=== PATIENT | female | born 1960 | race Caucasian/White ===

== ENCOUNTER 2019-03-15 18:11 | Inpatient (IN) ==
[2019-03-15] MEDS ORDERED: cefTRIAXone 1,000 MG in 0.9 % Sodium Chloride Mini Bag 100 ML IVPB ONE (18:42)
[2019-03-15] MEDS ORDERED: 0.9 % Sodium Chloride 1,000 ML IVC ONE (18:49)
--- NOTE | 2019-03-15 18:49 | Emergency Department Note ---
Disposition Clinical Impression: Multiple sclerosis Suicide attempt by multiple drug overdose Qualifiers: Encounter type: initial encounter Qualified Code(s): T50.902A - Poisoning by unspecified drugs, medicaments and biological substances, intentional self-harm, initial encounter UTI (urinary tract infection) Qualifiers: Urinary tract infection type: site unspecified Hematuria presence: with hematuria Qualified Code(s): N39.0 - Urinary tract infection, site not specified Disposition: Admitted As Inpatient Condition: Good Time of Disposition: 22:55 General Adult HPI - General Chief complaint: ED Psychiatric Symptoms Stated complaint: SI Time Seen by Provider: 03/15/19 18:17 Source: patient, EMS Limitations: no limitations - History of Present Illness Pain Scale: 0 - Related Data Home Medications Medication Instructions Recorded Confirmed Amantadine HCl [Amantadine] 100 mg PO DAILY 03/15/19 03/15/19 Baclofen 10 mg PO TID 03/15/19 03/15/19 Cholecalciferol (Vitamin D3) 2,000 unit PO DAILY 03/15/19 03/15/19 [Vitamin D] Citalopram Hydrobromide 40 mg PO DAILY 03/15/19 03/15/19 [Citalopram HBr] Gabapentin [Neurontin] 1,200 mg PO TID 03/15/19 03/15/19 Allergies Allergy/AdvReac Type Severity Reaction Status Date / Time acetaminophen [From Percocet] Allergy Hives Verified 03/15/19 15:57 oxycodone [From Percocet] Allergy Hives Verified 03/15/19 15:57 Past Medical History - Past Medical History Medical history: Reports: other Psychiatric history: Reports: no psych history - Social History Smoking Status: Current every day smoker Smokeless Tobacco Status: No Alcohol use: Reports: none Drug use: Reports: none Physical Exam - General Limitations: no limitations General appearance: alert, in no apparent distress Course Vital Signs Temperature 99.3 F 03/15/19 18:16 Pulse Rate 75 03/15/19 18:16 Respiratory Rate 18 03/15/19 18:16 Blood Pressure 135/80 03/15/19 18:16 O2 Sat by Pulse Oximetry 93 03/15/19 18:16 Temperature 98.9 F 03/15/19 20:30 Pulse Rate 78 03/15/19 20:30 Respiratory Rate 18 03/15/19 20:30 Blood Pressure 129/66 03/15/19 20:30 O2 Sat by Pulse Oximetry 89 03/15/19 20:30 Oxygen Delivery Oxygen Delivery Room Air Attestation Statement - Attestation Attestation: For this encounter, I have reviewed the RN CLINICAL DOCUMENTATION SPECIALIST or PA documentation, treatment plan, and medical decision making; and I have had face to face time with this patient. Patient arrives from an outside facility after intentionally overdosing on an SSRI. She is sleeping at the time of my exam.
[2019-03-15] MEDS ORDERED: Ipratropium/Albuterol Neb 3 ML IH ONE (18:53)
[2019-03-15] MEDS ORDERED: GuaiFENesin Liq 200 MG/10 ML UDC PO STA (18:53)
--- NOTE | 2019-03-15 18:56 | Emergency Department Note ---
Disposition Clinical Impression: Multiple sclerosis Suicide attempt by multiple drug overdose Qualifiers: Encounter type: initial encounter Qualified Code(s): T50.902A - Poisoning by unspecified drugs, medicaments and biological substances, intentional self-harm, initial encounter UTI (urinary tract infection) Qualifiers: Urinary tract infection type: site unspecified Hematuria presence: with hematuria Qualified Code(s): N39.0 - Urinary tract infection, site not specified Disposition: Admitted As Inpatient Condition: Good Time of Disposition: 19:37 General Adult HPI - General Chief complaint: ED Psychiatric Symptoms Stated complaint: SI Time Seen by Provider: 03/15/19 18:17 Source: patient, EMS Mode of arrival: EMS Limitations: no limitations Nursing Notes Reviewed: Yes Vital Signs Reviewed: Yes - History of Present Illness HPI Narrative: 58-year-old female presents to the emergency department via EMS from [facility] where she was seen for an intentional overdose with suicidal intent. Patient states that she just does not want to live any longer, she states she has MS which she is not treating and she would just rather not be alive. She states she took about 10 of "empty bottle" and maybe a few of her "relaxers". Patient states she took these medications around 1300. She states she feels tired but otherwise feels at her baseline. She denies alteration in mental status, confusion, recent illness, fever, chills, shortness of breath, chest pain, abdominal pain, nausea, vomiting, cough, diarrhea. She denies urinary complaints. Onset (ago): hour(s) Pain Scale: 0 Associated symptoms: Denies: confusion, chest pain, diaphoresis, fever/chills, headaches, loss of appetite, malaise, nausea/vomiting, rash, seizure, shortness of breath, syncope, weakness Treatments Prior to Arrival: other (Medical clearance labs obtained by previous facility) - Related Data Home Medications Medication Instructions Recorded Confirmed Amantadine HCl [Amantadine] 100 mg PO QAM 03/15/19 03/16/19 Cholecalciferol (Vitamin D3) 2,000 unit PO DAILY 03/15/19 03/16/19 [Vitamin D] Citalopram Hydrobromide 40 mg PO DAILY 03/15/19 03/16/19 [Citalopram HBr] Gabapentin [Neurontin] 1,200 mg PO TID 03/15/19 03/16/19 Baclofen [Lioresal] 10 mg PO TID PRN 03/16/19 03/16/19 Interferon Beta-1A [Avonex] 30 mcg IM QWEEK 03/16/19 03/16/19 Allergies Allergy/AdvReac Type Severity Reaction Status Date / Time acetaminophen [From Percocet] Allergy Hives Verified 03/16/19 17:33 oxycodone [From Percocet] Allergy Hives Verified 03/16/19 17:33 All systems ED: reviewed and negative except as stated. Review of Systems: As Per HPI Constitutional: Reports: as per HPI. Denies: fever, chills Cardiovascular: Reports: as per HPI. Denies: chest pain, palpitations Respiratory: Reports: as per HPI. Denies: cough, dyspnea, wheezes, sputum production Gastrointestinal: Reports: as per HPI. Denies: abdominal pain, nausea, vomiting, diarrhea, constipation Genitourinary: Reports: as per HPI Psychiatric: Reports: as per HPI, depression, suicidal thoughts Past Medical History - Past Medical History Attestation: Yes The following information was validated with the patient. Source: patient Medical history: Reports: other (MS) Psychiatric history: Reports: no psych history - Social History Smoking Status: Current every day smoker Smokeless Tobacco Status: No Alcohol use: Reports: none Drug use: Reports: none Physical Exam - General Limitations: no limitations General appearance: alert, in no apparent distress - Head Head exam: atraumatic, normocephalic, normal inspection - Eye Eye exam: Present: normal appearance, PERRL, EOMI, conjunctival injection (Slight) - ENT ENT exam: mucous membranes moist - Neck Neck exam: Present: normal inspection, full ROM, trachea midline - Chest Chest inspection: Present: normal inspection, symmetric chest wall rise - Respiratory Respiratory exam: Present: other (rhoncii throughout). Absent: respiratory distress, wheezes, accessory muscle use, prolonged expiratory phase - Cardiovascular Cardiovascular exam: Present: regular rate, normal rhythm, normal heart sounds - Abdominal Exam Abdominal exam: Present: soft, Non-Tender, normal bowel sounds - Neurological Exam Neurological exam: Present: alert, oriented X3 - Psychiatric Psychiatric exam: Present: normal affect, normal mood - Skin Skin exam: Present: warm, dry, intact, normal color Course Course Narrative: Well-developed female in no acute distress. Respirations are easy and even. Patient is alert and oriented, she is noted with slurred speech, she states this is her baseline related to the EMS, she does have some facial symmetry again she states this is baseline. GCS is 15. Moves all extremities at baseline, generalized weakness to entire body. Patient slightly elevated temperature of 99.3, oxygenation 93% on room air, normotensive, non-tachycardic. EKG completed upon arrival reveals a ventral rate 77 bpm, TX interval 134 ms, QTC 452 ms, there is no evidence of ischemia, prolonged QT, abnormal ectopy. Lungs reveal rhonchi throughout. Abdomen is soft and nontender. Patient is very disheveled, she does not appear well-kept. Patient came with her home medications, there is an empty bottle of citalopram 20 mg, she has 3 full bottles of amantadine 100 mg, she has positive tobacco pfe nnig gabapentin. She specifically states it was the empty bottle that she took about 10 medication of, the baclofen is incredibly full and she states she took maybe "a couple of relaxers" when asked if it was the muscle relaxer baclofen she said yes. Review of records from previous facility revealed labs with an elevated white blood cell count of 12.2, CBC otherwise unremarkable, metabolic panel unremarkable, hepatic panel specifically AST/ALTs were within normal limits. ABG only abnormality was a PCO2 of 81, lactic acid 1.4 UA does reveal UTI as nitrite positive, hematuria. Urine tox screen was negative. There is a chest x-ray completed a previous facility with no acute abnormality. Upon arrival EKG was completed. [id number]-spoke with poison control center, they recommended monitoring for 24 hours and then having psychological evaluation. Given the patient is unknown to us despite her stating she is at her baseline she does have slurred speech and generalized weakness, we will obtain a head CT. We will initiate treatment for the UTI with ceftriaxone, flagyl as pt is also Trichomonas positive. We will initiate fluids. We will obtain urine culture as well as blood cultures. Patient will require admission to the medical floor, she is currently under pink slip. She is agreeable to this plan of care. Attending Dr. Ku has had one-on-one face time with patient is agreeable to plan of care. 193- head CT returns with motion artifact but similar in appearance without evidence of acute abnormality. Spoke with hospitalist Dr. Rico, agreeable for admission to hospital. Will transition care to inpatient team at this time. Will monitor until complete. Vital Signs Temperature 99.3 F 03/15/19 18:16 Pulse Rate 75 03/15/19 18:16 Respiratory Rate 18 03/15/19 18:16 Blood Pressure 135/80 03/15/19 18:16 O2 Sat by Pulse Oximetry 93 03/15/19 18:16 Temperature 98.6 F 03/16/19 15:56 Pulse Rate 78 03/16/19 15:56 Respiratory Rate 20 03/16/19 15:56 Blood Pressure 160/75 03/16/19 15:56 O2 Sat by Pulse Oximetry 92 03/16/19 15:56 Oxygen Delivery Oxygen Delivery Room Air Medical Decision Making - Lab Data Lab results reviewed: Yes I reviewed the patient's lab results. Result diagrams: 03/16/19 06:53 03/16/19 06:53 Lab Results 03/16/19 03/16/19 03/16/19 Range/Units 06:53 06:53 12:58 WBC 10.7 (4.3-11.1) K/mcL RBC 4.78 (3.82-4.97) M/mcL Hgb 14.4 (11.5-15.4) g/dL Hct 42.7 (35.3-44.9) % MCV 89.3 (83.0-100.0) fL MCH 30.1 (28.0-33.3) pg MCHC 33.7 (31.6-35.5) g/dL RDW 12.5 (11.5-14.5) % Plt Count 308 (140-400) K/mcL MPV 9.7 (9.4-12.4) fL Immature Gran % 0.3 (0-4) % Seg Neutrophils % 79.0 % Lymphocytes % 12.4 % Monocytes % 6.2 % Eosinophils % 1.6 % Basophils % 0.5 % Neutrophils # 8.5 (1.6-8.9) K/mcL Lymphocytes # 1.3 (0.6-4.6) K/mcL Monocytes # 0.7 (0.0-1.3) K/mcL Eosinophils # 0.2 (0.0-0.6) K/mcL Basophils # 0.1 (0.0-0.2) K/mcL ABG pH 7.42 (7.32-7.45) pH Units ABG pCO2 36 (35-45) mmHg ABG pO2 55 L (85-104) mmHg ABG HCO3 24 (21-27) mEq/L ABG Total CO2 25 (20-26) mEq/L ABG O2 Saturation 89 L (95-98) % ABG Base Excess -1 (-2 to 3) mEq/L O2 Delivery Device Cannula Inspired O2 8.0 (1-15=lpm [id number]%) Sodium 138 (136-145) mEq/L Potassium 3.9 (3.5-5.1) mEq/L Chloride 104 (98-107) mEq/L Carbon Dioxide 24 (23-29) mEq/L BUN 7 (6-20) mg/dL Creatinine 0.59 L (0.60-1.20) mg/dL Est GFR ( Amer) > 60 (> 60) Est GFR (Non-Af Amer) > 60 (> 60) BUN/Creatinine Ratio 12 (6-26) Glucose 131 H (70-105) mg/dL Calculated Osmolality 286 (280-300) Calcium 8.8 (8.6-10.3) mg/dL Total Bilirubin 0.7 (0.3-1.0) mg/dL AST 12 L (13-39) Units/L ALT 13 (7-52) Units/L Alkaline Phosphatase 110 H (34-104) Units/L Creatine Kinase 169 (30-223) Units/L Serum Total Protein 5.9 L (6.4-8.9) g/dL Albumin 3.6 (3.5-5.7) g/dL Globulin 2.3 L (2.4-3.5) g/dL Albumin/Globulin Ratio 1.6 (1.1-2.2) - Radiology Data Radiology results reviewed: Yes I reviewed the patient's radiology results. - EKG Data EKG #1 EKG attestation: Yes I reviewed and interpreted this EKG.
[2019-03-15] MEDS ORDERED: MetroNIDAZOLE 500 MG/100 ML 500 MG/100 ML BAG IVPB ONE (19:17)
[2019-03-15] MEDS ORDERED: Ipratropium/Albuterol Neb 3 ML IH PRN (20:08)
[2019-03-15] MEDS: Ringers Solution, Lactated 1,000 ML IVC SCH (21:35)
[2019-03-15] MEDS: Ondansetron 4 MG/2 ML VIAL IVP PRN (23:29)
--- NOTE | 2019-03-15 23:40 | Internal Med History&Physical ---
Date of Encounter: 03/15/19 Time of Encounter: 23:38 Internal Medicine - H&P: HPI Chief complaint: ams Admitted From: Hospital to Hospital Transfer Plans for Post Hospital Care: Home History of present illness: Information obtained from chart review as the patient is not responsive at the moment. Lluvia Moreno is a 58-year-old woman with multiple sclerosis and mood disorder who went to [facility] at 4 PM today after taking a handful of pills at 1 PM this afternoon. It appears she took about 10 tablets of citalopram 40 mg and a number of baclofen 10 mg tablets with intent to harm herself or in her life. Upon arrival to [facility] she was still alert and oriented but her speech was gradually starting to become slow and slurry. She was transferred to our ER here for further evaluation. She denied reports of hallucinations, recent illness, fever, chills, and shortness of breath or chest pain. She also denied associated abdominal pain, dysuria, nausea, vomiting or diarrhea. She remained hemodynamically stable, EKG revealed a normal sinus rhythm with intact [place] and QTc intervals. Lab work done at [facility] appeared unchanged from study she had done in 2015. A urine study was done but not collected in sterile fashion revealing nitrites and leukocyte esterase with pyuria so she was given a dose of ceftriaxone. Due to the presence of Trichomonas in the urine specimen she was also given metronidazole. Given the acute intoxication shows unable to be cleared medically pending 24-hour observation after which she can be seen by psychiatry. Vitals: Reviewed General: Unkempt-appearing female sleeping comfortably in bed in no acute distress. Skin: Warm and dry. HEENT: Moist mucous membranes. No conjunctivae pallor. Neck: No lymphadenopathy. No JVD. No carotid bruits. No palpable thyroid. Chest: Normal thoracic expansion. Normal breath sounds. Clear to auscultation. Heart: Normal S1 & S2; rhythmic. No rubs or murmurs. Abdomen: Non-distended, soft and non-tender to palpation. No peritoneal reaction. Extremities: No clubbing, cyanosis or edema. No calf tenderness. Normal distal pulses. Neurological: Sleeping and unresponsive. Psych: Unable to assess. Assessment/Plan 1. Intentional overdose: Will monitor the patient on telemetry overnight, monitor her airways and ensure she does not go into respiratory depression. Her blood gas was within normal limits. She will continue to have a sitter until evaluated by psychiatry. In the interim, fluid resuscitation is in order and will recheck her electrolytes. 2. Abnormal UA: Not collected in sterile fashion and there was no reports of fever, lower abdominal pain and dysuria. Likely asymptomatic bacteriuria and not necessitating treatment. Can be re-evaluated when she wakes up. Unclear if she has clinical signs of vaginitis that would warrant metronidazole treatment for the Trichomonas seen on urine. This can be addressed as an outpatient and does not necessitate inpatient care. 3. Multiple sclerosis: The patient reportedly is not on therapy for this however on my review of her medication list, she has amantadine which can be used to treat fatigue in patients with MS. 4. DVT prophylaxis: Antiembolic stockings ordered. Past Med Surg Social Fam HX - Past Medical History Medical history: other Additional medical history: MS Psychiatric history: no psych history - Social History Smoking Status: Current every day smoker Smokeless Tobacco Status: No Alcohol use: none Drug use: none Internal Medicine - H&P: Meds Amantadine HCl [Amantadine] 100 mg PO DAILY 03/15/19 [History] Baclofen 10 mg PO TID 03/15/19 [History] Cholecalciferol (Vitamin D3) [Vitamin D] 2,000 unit PO DAILY 03/15/19 [History] Citalopram Hydrobromide [Citalopram HBr] 40 mg PO DAILY 03/15/19 [History] Gabapentin [Neurontin] 1,200 mg PO TID 03/15/19 [History] Allergy/AdvReac Type Severity Reaction Status Date / Time acetaminophen [From Percocet] Allergy Hives Verified 03/15/19 15:57 oxycodone [From Percocet] Allergy Hives Verified 03/15/19 15:57 All Systems PM: A 10-system review of systems was performed and is negative for pertinent findings except as documented above in the HPI. Family history reviewed and found non-contributory. - Constitutional Vitals: Temp Pulse Resp BP Pulse Ox 97.8 F 67 16 133/78 93 03/15/19 23:00 03/15/19 23:00 03/15/19 23:00 03/15/19 23:00 03/15/19 23:00 Exam: . Internal Med - H&P Results - Impressions ITS Impressions Head CT 03/15/19 18:40 IMPRESSION: Motion limited. No acute intracranial abnormality. Atrophy with periventricular and scattered frontal parietal white matter disease,, similar to prior. These findings could be due to small-vessel ischemic change or the reported history of multiple sclerosis. Paranasal sinus disease D/ / Cristian Hart MD / Cristian Hart MD Interpreting Provider: Cristian Hart MD - Time Spent With Patient Total time spent is greater than 50% in coordination of care (as documented) at patient's floor/unit and/or counseling patient:
[2019-03-16] MEDS: Ringers Solution, Lactated 1,000 ML IVC SCH ×2 (03:22→09:57)
[2019-03-16 07:44] LABS: Basophils # 0.1 K/mcL (0.0-0.2); Basophils % 0.5 %; Eosinophils # 0.2 K/mcL (0.0-0.6); Eosinophils % 1.6 %; Hematocrit 42.7 % (35.3-44.9); Hemoglobin 14.4 g/dL (11.5-15.4); Immature Granulocytes % 0.3 % (0-4); Lymphocytes # 1.3 K/mcL (0.6-4.6); Lymphocytes % 12.4 %; Mean Corpuscular HGB Conc 33.7 g/dL (31.6-35.5); Mean Corpuscular Hemoglobin 30.1 pg (28.0-33.3); Mean Corpuscular Volume 89.3 fL (83.0-100.0); Mean Platelet Volume 9.7 fL (9.4-12.4); Monocytes # 0.7 K/mcL (0.0-1.3); Monocytes % 6.2 %; Neutrophils # 8.5 K/mcL (1.6-8.9); Platelet Count 308 K/mcL (140-400); Red Blood Count 4.78 M/mcL (3.82-4.97); Red Cell Distribution Width 12.5 % (11.5-14.5); White Blood Count 10.7 K/mcL (4.3-11.1)
[2019-03-16 08:06] LABS: Alanine Aminotransferase 13 Units/L (7-52); Albumin 3.6 g/dL (3.5-5.7); Albumin/Globulin Ratio 1.6 (1.1-2.2); Alkaline Phosphatase 110 Units/L (34-104); Aspartate Amino Transferase 12 Units/L (13-39); BUN/Creatinine Ratio 12 (6-26); Bilirubin,Total 0.7 mg/dL (0.3-1.0); Blood Urea Nitrogen 7 mg/dL (6-20); Calcium 8.8 mg/dL (8.6-10.3); Carbon Dioxide 24 mEq/L (23-29); Chloride 104 mEq/L (98-107); Creatine Kinase 169 Units/L (30-223); Globulin 2.3 g/dL (2.4-3.5); Glucose 131 mg/dL (70-105); Osmolality,Calculated 286 (280-300); Potassium 3.9 mEq/L (3.5-5.1); Sodium 138 mEq/L (136-145); Total Protein 5.9 g/dL (6.4-8.9); eGFR For African Americans > 60 (> 60); eGFR For Non-African Americans > 60 (> 60)
[2019-03-16] MEDS: Ondansetron 4 MG/2 ML VIAL IVP PRN ×2 (09:58→16:06)
[2019-03-16] MEDS: Acetaminophen 325 MG TABLET PO PRN (10:14)
[2019-03-16 13:03] LABS: ABG Base Excess -1 mEq/L (-2 to 3); ABG HCO3 24 mEq/L (21-27); ABG Oxygen Saturation 89 % (95-98); ABG PCO2 36 mmHg (35-45); ABG PH 7.42 pH Units (7.32-7.45); ABG PO2 55 mmHg (85-104); ABG TCO2 25 mEq/L (20-26)
--- NOTE | 2019-03-16 15:10 | Consult Note ---
Date of Encounter: 03/16/19 Time of Encounter: 15:03 Assessment & Recommendation (1) Major depress dis, severe Current visit: Yes Status: Acute Assessment & Recommendation: Client reports being glad her suicide attempt was unsuccessful but she also reports struggles with depression and SI that comes and goes. Warrants inpatient mental health treatment. Would continue sitter for the time being. Takes Celexa but client denies currently being treated for depression. Celexa is used for depression and anxiety. Unclear how long she has been on this medication or if it was helping her at any point. Would recommend increasing dose to 60mg at this time. This will maximize the dose and if she does not get any benefit from the dose change can look at switching to another agent or adding a second antidepressant. Given how client presents clinically/medically would [facility]. She is younger than the average [facility] patient but I would have concerns having her on a unit with younger more aggressive, psychotic patients. Given her mobility issues and currently being on oxygen, think she is better suited for a [facility]. Recommend a [employer] consult to look at placement options. History of Present Illness Requesting Physician: Nat Rico MD Reason for consult: SI History of present illness: Ms. Moreno is a 58 year old female who was admitted following a polypharmacy overdose with intent to end her life. Client has no previous history of suicide attempts. On eval today client reports being glad her suicide attempt was not successful. However, she reports significant depression and SI that comes and goes. Client reports she has been diagnosed with Bipolar Disorder in the past but denies she is currently seeing a psychiatrist and denies she is being treated for mental illness. Records show she takes Celexa which client may not realize she is taking. Lives with ex- who helps her with meds. Client has MS. On eval she looks medically fragile. Repeatedly cramped while this underwriter solicitation director was talking to her and needed help moving her limbs to help with muscle contractures. Seemed very short of breath as her speech was fragmented. On oxygen here but client states she does not normally use oxygen at home. Suspect she is not adequately managing her medical issues at home. Client states she struggles with transportation and may not be following with doctors as recommended. CC: Nat Rico MD Past Med Surg Social Fam HX - Past Medical History Medical history: other - Past Psychiatric History Psychiatric history: Reports: bipolar, depression Family psychiatric history: Yes Family History of Suicide: Unknown - Social History Smoking Status: Current every day smoker Smokeless Tobacco Status: No Alcohol use: none Drug use: none Medications & Allergies Amantadine HCl [Amantadine] 100 mg PO DAILY 03/15/19 [History] Baclofen 10 mg PO TID 03/15/19 [History] Cholecalciferol (Vitamin D3) [Vitamin D] 2,000 unit PO DAILY 03/15/19 [History] Citalopram Hydrobromide [Citalopram HBr] 40 mg PO DAILY 03/15/19 [History] Gabapentin [Neurontin] 1,200 mg PO TID 03/15/19 [History] Allergy/AdvReac Type Severity Reaction Status Date / Time acetaminophen [From Percocet] Allergy Hives Verified 03/15/19 15:57 oxycodone [From Percocet] Allergy Hives Verified 03/15/19 15:57 Review of Systems Constitutional: Reports: weakness Eyes: Denies: eye pain, vision change Ears, Nose, Throat: Denies: ear pain, throat pain, dental pain, hearing loss, congestion Cardiovascular: Denies: chest pain, palpitations, dyspnea on exertion Respiratory: Reports: other Gastrointestinal: Denies: abdominal pain, nausea, vomiting, diarrhea, constipation Genitourinary female: Denies: urgency, dysuria, frequency, abnormal menses, dyspareunia Musculoskeletal: Reports: other Integumentary: Denies: rash, lesions, pruritus Neurological: Reports: weakness Endocrine: Denies: fatigue, heat or cold intolerance Hematologic/Lymphatic: Denies: easy bruising, lymphadenopathy Allergic/Immunologic: Denies: urticaria, itchy eyes Psychiatry Exam - Constitutional Vitals: Temp Pulse Resp BP Pulse Ox 99.3 F 88 16 150/75 86 03/16/19 07:32 03/16/19 12:36 03/16/19 07:32 03/16/19 07:32 03/16/19 12:36 General appearance: unkempt, disheveled - Musculoskeletal Station: stiff Strength & Tone: spastic - Psychiatric Patient Orientation: Yes Person, Yes Time, Yes Place Level of alertness: Alert Behavior: calm, cooperative Psychomotor activity: Abnormal movements Eye Contact: Maintains Eye Contact Mood Description: Depressed Affect description: congruent with mood Speech Volume: Soft/Quiet Speech pattern: slowed Language & Vocabulary: consistent with education Thought Process: Linear Thought Content: Yes Suicidal ideation, No Homicidal ideation, No Overt delusions Perceptual Disturbances: No Auditory hallucinations, No Visual hallucinations Attention Span Ability: Capable of Focused Attention Memory Description: Grossly Intact Patient Reliability: Reliable Historian Fund of knowledge: Yes abstraction ability, Yes aware of current events Intelligence Estimate: Average Judgment: Poor Insight: Partial Results - Labs Labs: Laboratory Last Values WBC 10.7 K/mcL (4.3-11.1) 03/16/19 06:53 RBC 4.78 M/mcL (3.82-4.97) 03/16/19 06:53 Hgb 14.4 g/dL (11.5-15.4) 03/16/19 06:53 Hct 42.7 % (35.3-44.9) 03/16/19 06:53 MCV 89.3 fL (83.0-100.0) 03/16/19 06:53 MCH 30.1 pg (28.0-33.3) 03/16/19 06:53 MCHC 33.7 g/dL (31.6-35.5) 03/16/19 06:53 RDW 12.5 % (11.5-14.5) 03/16/19 06:53 Plt Count 308 K/mcL (140-400) 03/16/19 06:53 MPV 9.7 fL (9.4-12.4) 03/16/19 06:53 Immature Gran % 0.3 % (0-4) 03/16/19 06:53 Seg Neutrophils % 79.0 % 03/16/19 06:53 Lymphocytes % 12.4 % 03/16/19 06:53 Monocytes % 6.2 % 03/16/19 06:53 Eosinophils % 1.6 % 03/16/19 06:53 Basophils % 0.5 % 03/16/19 06:53 Neutrophils # 8.5 K/mcL (1.6-8.9) 03/16/19 06:53 Lymphocytes # 1.3 K/mcL (0.6-4.6) 03/16/19 06:53 Monocytes # 0.7 K/mcL (0.0-1.3) 03/16/19 06:53 Eosinophils # 0.2 K/mcL (0.0-0.6) 03/16/19 06:53 Basophils # 0.1 K/mcL (0.0-0.2) 03/16/19 06:53 ABG pH 7.42 pH Units (7.32-7.45) 03/16/19 12:58 ABG pCO2 36 mmHg (35-45) 03/16/19 12:58 ABG pO2 55 mmHg (85-104) L 03/16/19 12:58 ABG HCO3 24 mEq/L (21-27) 03/16/19 12:58 ABG Total CO2 25 mEq/L (20-26) 03/16/19 12:58 ABG O2 Saturation 89 % (95-98) L 03/16/19 12:58 ABG Base Excess -1 mEq/L (-2 to 3) 03/16/19 12:58 O2 Delivery Device Cannula 03/16/19 12:58 Inspired O2 8.0 (1-15=lpm [id number]=%) 03/16/19 12:58 Sodium 138 mEq/L (136-145) 03/16/19 06:53 Potassium 3.9 mEq/L (3.5-5.1) 03/16/19 06:53 Chloride 104 mEq/L (98-107) 03/16/19 06:53 Carbon Dioxide 24 mEq/L (23-29) 03/16/19 06:53 BUN 7 mg/dL (6-20) 03/16/19 06:53 Creatinine 0.59 mg/dL (0.60-1.20) L 03/16/19 06:53 Est GFR ( Amer) > 60 (> 60) 03/16/19 06:53 Est GFR (Non-Af Amer) > 60 (> 60) 03/16/19 06:53 BUN/Creatinine Ratio 12 (6-26) 03/16/19 06:53 Glucose 131 mg/dL (70-105) H 03/16/19 06:53 Calculated Osmolality 286 (280-300) 03/16/19 06:53 Calcium 8.8 mg/dL (8.6-10.3) 03/16/19 06:53 Total Bilirubin 0.7 mg/dL (0.3-1.0) 03/16/19 06:53 AST 12 Units/L (13-39) L 03/16/19 06:53 ALT 13 Units/L (7-52) 03/16/19 06:53 Alkaline Phosphatase 110 Units/L (34-104) H 03/16/19 06:53 Creatine Kinase 169 Units/L (30-223) 03/16/19 06:53 Serum Total Protein 5.9 g/dL (6.4-8.9) L 03/16/19 06:53 Albumin 3.6 g/dL (3.5-5.7) 03/16/19 06:53 Globulin 2.3 g/dL (2.4-3.5) L 03/16/19 06:53 Albumin/Globulin Ratio 1.6 (1.1-2.2) 03/16/19 06:53 - Impressions Impressions Head CT 03/15/19 18:40 IMPRESSION: Motion limited. No acute intracranial abnormality. Atrophy with periventricular and scattered frontal parietal white matter disease,, similar to prior. These findings could be due to small-vessel ischemic change or the reported history of multiple sclerosis. Paranasal sinus disease D/ / Cristian Hart MD / Cristian Hart MD Interpreting Provider: Cristian Hart MD Chest X-Ray 03/16/19 12:47 IMPRESSION: New consolidation within the right lower lobe with associated volume loss and mild mediastinal shift towards the right. Right-sided pleural effusion is not excluded. Lobar atelectasis of the right middle and lower lobes cannot be excluded. Consider follow-up CT for further evaluation. D/ / Erum Yu MD / Erum Yu MD Interpreting Provider: Erum Yu MD Consult Discharge Plan - Plan Referrals: NONE,PCP [Primary Care Provider] -
[2019-03-16] MEDS: 0.9 % Sodium Chloride 1,000 ML IVC SCH (16:07)
--- NOTE | 2019-03-16 17:01 | Internal Med Progress Note ---
Hospitalist Progress Note - Encounter Date of Encounter: 03/16/19 Time of Encounter: 10:00 - Subjective Interval History: She was seen and examined at bedside patient has been experiencing some respiratory distress with oxygen saturations in the mid low 80s ABG was obtained which did show some hypoxia patient was placed in the high flow oxygen stat chest x-rays ordered -concern for possible aspiration Due to the patient's decline respiratory states she will require greater than 2 midnights for treatment and will be switched to inpatient status - Exam Vitals: Temp Pulse Resp BP Pulse Ox 98.6 F 78 20 160/75 92 03/16/19 15:56 03/16/19 15:56 03/16/19 15:56 03/16/19 15:56 03/16/19 15:56 Exam: Patient appears to be in moderate respiratory distress Skin: Free of rash and discoloration. Eyes: Sclera is white. There is no discharge from eyes. ENMT: Oral/pharyngeal mucosa is normal in appearance. There is no discharge from nose or ears. Respiratory: Diminished breath sounds with accessory muscles used CV: Heart is regular with no gallop or murmur. GI: Abdomen is flat and soft with no palpable mass or visceromegaly. : There is no tenderness in patient's flanks bilaterally. Neuro exam: He has good strength in upper and lower extremities. He has normal eye movements. Psychiatric: He has normal affect. His thought process is appropriate to the situation. - Assessment and Plan (1) Acute respiratory failure with hypoxemia Current Visit: Yes Status: Acute Assessment and Plan: 1 patient appears to be in respiratory distress at one assessment she does have conversational dyspnea and is using sensory muscles. Decreased breath sounds- suspect possible aspiration pneumonia secondary to drug overdose ABG obtained which does show some hypoxia placed on high flow oxygen Will obtain chest x-ray Blood cultures Initiate on Zosyn (2) Major depress dis, severe Current Visit: Yes Status: Acute Assessment and Plan: Psychiatry has been consulted and appreciate recommendations-currently holding medications due to recent overdose (3) Multiple sclerosis Current Visit: Yes Status: Acute Assessment and Plan: Patient states she follows with Dr. Ace states "I have not been taking her medications, I am going to anyway, Why bother." home list of meds - amantadine (4) Suicide attempt by multiple drug overdose Current Visit: Yes Status: Acute Assessment and Plan: Overdose on baclofen and citalopram-EKG obtained with no prolonged QT interval continuous cardiac monitoring-poison control notified per ED Aspiration precautions Continuous SPO2 monitoring Continuous oxygen-acquiring high flow Patient is very tearful stating that she wants to -is evaluated by psychiatry and due to her debilitated state recommending [facility]. Once patient is medically stable we will have her evaluated by PT OT and possible transfer to geriatric psychiatric unit Consult social sciences lecturer (5) UTI (urinary tract infection) Current Visit: Yes Status: Acute Assessment and Plan: Patient is on Zosyn at this time urine culture is pending-she did have Trichomonas in her urine was given-metronidazole. - Time Spent with Patient Total time spent is greater than 50% in coordination of care (as documented) at patient's floor/unit and/or counseling patient: Internal Medicine: Result - Labs CBC & Chem 7: 03/16/19 06:53 03/16/19 06:53 Labs: Short CBC 03/16/19 Range/Units 06:53 WBC 10.7 (4.3-11.1) K/mcL Hgb 14.4 (11.5-15.4) g/dL Hct 42.7 (35.3-44.9) % Plt Count 308 (140-400) K/mcL Neutrophils # 8.5 (1.6-8.9) K/mcL BMP 03/16/19 06:53 Sodium 138 Potassium 3.9 Chloride 104 Carbon Dioxide 24 BUN 7 Creatinine 0.59 L Glucose 131 H Calcium 8.8 Liver Function 03/16/19 Range/Units 06:53 Total Bilirubin 0.7 (0.3-1.0) mg/dL AST 12 L (13-39) Units/L ALT 13 (7-52) Units/L Alkaline Phosphatase 110 H (34-104) Units/L Albumin 3.6 (3.5-5.7) g/dL - ABG Interpretation ABG results: ABG ABG pH 7.42 pH Units (7.32-7.45) 03/16/19 12:58 ABG pCO2 36 mmHg (35-45) 03/16/19 12:58 ABG pO2 55 mmHg (85-104) L 03/16/19 12:58 ABG O2 Saturation 89 % (95-98) L 03/16/19 12:58 - Impressions Impressions Head CT 03/15/19 18:40 IMPRESSION: Motion limited. No acute intracranial abnormality. Atrophy with periventricular and scattered frontal parietal white matter disease,, similar to prior. These findings could be due to small-vessel ischemic change or the reported history of multiple sclerosis. Paranasal sinus disease D/ / Cristian Hart MD / Cristian Hart MD Interpreting Provider: Cristian Hart MD Chest X-Ray 03/16/19 12:47 IMPRESSION: New consolidation within the right lower lobe with associated volume loss and mild mediastinal shift towards the right. Right-sided pleural effusion is not excluded. Lobar atelectasis of the right middle and lower lobes cannot be excluded. Consider follow-up CT for further evaluation. D/ / Erum Yu MD / Erum Yu MD Interpreting Provider: Erum Yu MD Consult Discharge Plan - Plan Referrals: NONE,PCP [Primary Care Provider] - (4) Suicide attempt by multiple drug overdose Qualifiers: Encounter type: initial encounter Qualified Code(s): T50.902A - Poisoning by unspecified drugs, medicaments and biological substances, intentional self-harm, initial encounter (5) UTI (urinary tract infection) Qualifiers: Urinary tract infection type: site unspecified Hematuria presence: with hematuria Qualified Code(s): N39.0 - Urinary tract infection, site not specified; R31.9 - Hematuria, unspecified
--- NOTE | 2019-03-16 17:34 | Event Note ---
Date of Encounter: 03/16/19 Time of Encounter: 17:00 5 per nursing staff the patient's oxygen saturations down to 82% on high flow oxygen on 12 L nasal cannula patient was placed on BiPAP oxygen saturations up to 96% patient will be transferred to [facility] for further treatment and critical observation. Chest x-ray was obtained stat which did reveal new consolidation within right lower lobe with associated volume loss and mild Negus diagnosis with the right right-sided pleural effusion is not excluded lobar atelectasis of the right middle and lower lobes cannot be excluded consider follow-up CT for further evaluation. CT ordered however patient is not stable to complete
[2019-03-16] MEDS: Piperacillin/Tazobactam 3.375 GM in 0.9 % Sodium Chloride Mini Bag 100 ML IVPB SCH (18:20)
[2019-03-17] MEDS: Piperacillin/Tazobactam 3.375 GM in 0.9 % Sodium Chloride Mini Bag 100 ML IVPB SCH ×3 (01:03→17:49)
[2019-03-17] MEDS: 0.9 % Sodium Chloride 1,000 ML IVC SCH ×3 (01:06→22:56)
[2019-03-17 06:08] LABS: Basophils % 0.4 %; Eosinophils # 0.3 K/mcL (0.0-0.6); Eosinophils % 3.1 %; Hematocrit 41.9 % (35.3-44.9); Hemoglobin 13.6 g/dL (11.5-15.4); Immature Granulocytes % 0.2 % (0-4); Lymphocytes # 1.4 K/mcL (0.6-4.6); Lymphocytes % 15.6 %; Mean Corpuscular HGB Conc 32.5 g/dL (31.6-35.5); Mean Corpuscular Hemoglobin 29.6 pg (28.0-33.3); Mean Corpuscular Volume 91.1 fL (83.0-100.0); Mean Platelet Volume 9.6 fL (9.4-12.4); Monocytes # 0.6 K/mcL (0.0-1.3); Monocytes % 6.6 %; Neutrophils # 6.7 K/mcL (1.6-8.9); Platelet Count 269 K/mcL (140-400); Red Cell Distribution Width 12.7 % (11.5-14.5); Segmented Neutrophils % 74.1 %; White Blood Count 9.1 K/mcL (4.3-11.1)
[2019-03-17 06:26] LABS: BUN/Creatinine Ratio 13 (6-26); Blood Urea Nitrogen 9 mg/dL (6-20); Calcium 8.5 mg/dL (8.6-10.3); Carbon Dioxide 25 mEq/L (23-29); Chloride 106 mEq/L (98-107); Glucose 128 mg/dL (70-105); Osmolality,Calculated 290 (280-300); Potassium 3.6 mEq/L (3.5-5.1); Sodium 140 mEq/L (136-145); eGFR For African Americans > 60 (> 60); eGFR For Non-African Americans > 60 (> 60)
[2019-03-17] MEDS: Acetaminophen 325 MG TABLET PO PRN (08:47)
--- NOTE | 2019-03-17 11:24 | Internal Med Progress Note ---
Hospitalist Progress Note - Encounter Date of Encounter: 03/17/19 Time of Encounter: 11:21 - Subjective Interval History: Patient was seen and examined at bedside today. Patient is currently having no issues and complaint. Patient was transferred yesterday from [address] [place] [address] due to development of acute hypoxic respiratory failure and was placed on BiPAP. Patient is currently on high flow oxygen via nasal cannula. Continue Zosyn for aspiration pneumonia. We will get a CT scan today. We will start Celexa today for depression but psychiatry recommendation. - Exam Vitals: Temp Pulse Resp BP Pulse Ox 98.3 F 63 18 141/75 96 03/17/19 11:20 03/17/19 11:20 03/17/19 11:20 03/17/19 11:20 03/17/19 11:20 Exam: Patient appears in mild respiratory distress. Eyes: Sclera is white. There is no discharge from eyes. ENMT: Oral/pharyngeal mucosa is normal in appearance. There is no discharge from nose or ears. Respiratory: Little coarse breath sounds. CV: S1 and S2 regular rate and rhythm. No murmur. GI: Soft and nontender. Bowel sounds present in 4 quadrants.. : There is no tenderness in patient's flanks bilaterally. Neuro exam: He has good strength in upper and lower extremities. He has normal eye movements. Psychiatric: He has normal affect. His thought process is appropriate to the situation. Suicidal ideation and homicidal ideation at present. - Assessment and Plan (1) Acute respiratory failure with hypoxemia Current Visit: Yes Status: Acute Assessment and Plan: Patient was transferred to [address] [place] [address] yesterday due to development of acute hypoxemic respiratory failure. Continue Zosyn. Patient is currently off BiPAP. We will get CT chest today. (2) Suicide attempt by multiple drug overdose Current Visit: Yes Status: Acute Assessment and Plan: Patient denies any suicidal ideation and homicidal ideation. Celexa started per psychiatry recommendation. Psychiatry recommended [facility] for her.. (3) UTI (urinary tract infection) Current Visit: Yes Status: Acute Assessment and Plan: Patient is on Zosyn at this time urine culture is pending. (4) Multiple sclerosis Current Visit: Yes Status: Acute Assessment and Plan: We will start home medication after confirming. (5) Major depress dis, severe Current Visit: Yes Status: Acute Assessment and Plan: Celexa started today. DVT Prophylaxis: Stocking. - Time Spent with Patient Total time spent is greater than 50% in coordination of care (as documented) at patient's floor/unit and/or counseling patient: 25 - 35 minutes Plan of Care Discussed with: patient Internal Medicine: Result - Labs CBC & Chem 7: 03/17/19 05:19 03/17/19 05:19 Labs: Short CBC 03/17/19 Range/Units 05:19 WBC 9.1 (4.3-11.1) K/mcL Hgb 13.6 (11.5-15.4) g/dL Hct 41.9 (35.3-44.9) % Plt Count 269 (140-400) K/mcL Neutrophils # 6.7 (1.6-8.9) K/mcL BMP 03/17/19 05:19 Sodium 140 Potassium 3.6 Chloride 106 Carbon Dioxide 25 BUN 9 Creatinine 0.68 Glucose 128 H Calcium 8.5 L - ABG Interpretation ABG results: ABG ABG pH 7.42 pH Units (7.32-7.45) 03/16/19 12:58 ABG pCO2 36 mmHg (35-45) 03/16/19 12:58 ABG pO2 55 mmHg (85-104) L 03/16/19 12:58 ABG O2 Saturation 89 % (95-98) L 03/16/19 12:58 - Impressions Impressions Chest X-Ray 03/16/19 12:47 IMPRESSION: New consolidation within the right lower lobe with associated volume loss and mild mediastinal shift towards the right. Right-sided pleural effusion is not excluded. Lobar atelectasis of the right middle and lower lobes cannot be excluded. Consider follow-up CT for further evaluation. D/ / Erum Yu MD / Erum Yu MD Interpreting Provider: Erum Yu MD - VTE Documentation of Mechanical Device: Graduated compression elastic hosiery Consult Discharge Plan - Plan Referrals: NONE,PCP [Primary Care Provider] - (2) Suicide attempt by multiple drug overdose Qualifiers: Encounter type: initial encounter Qualified Code(s): T50.902A - Poisoning by unspecified drugs, medicaments and biological substances, intentional self-harm, initial encounter (3) UTI (urinary tract infection) Qualifiers: Urinary tract infection type: site unspecified Hematuria presence: with hematuria Qualified Code(s): N39.0 - Urinary tract infection, site not specified; R31.9 - Hematuria, unspecified
[2019-03-17] MEDS: Gabapentin 300 MG CAPSULE PO SCH (20:28)
[2019-03-18] MEDS: Piperacillin/Tazobactam 3.375 GM in 0.9 % Sodium Chloride Mini Bag 100 ML IVPB SCH ×3 (02:56→17:57)
[2019-03-18 04:51] LABS: Basophils % 0.4 %; Eosinophils # 0.6 K/mcL (0.0-0.6); Hemoglobin 13.4 g/dL (11.5-15.4); Immature Granulocytes % 0.4 % (0-4); Lymphocytes # 1.5 K/mcL (0.6-4.6); Lymphocytes % 14.9 %; Mean Corpuscular HGB Conc 33.5 g/dL (31.6-35.5); Mean Corpuscular Hemoglobin 29.9 pg (28.0-33.3); Mean Corpuscular Volume 89.3 fL (83.0-100.0); Mean Platelet Volume 9.3 fL (9.4-12.4); Monocytes # 0.7 K/mcL (0.0-1.3); Monocytes % 7.5 %; Neutrophils # 6.9 K/mcL (1.6-8.9); Platelet Count 272 K/mcL (140-400); Red Blood Count 4.48 M/mcL (3.82-4.97); Red Cell Distribution Width 12.5 % (11.5-14.5); Segmented Neutrophils % 70.8 %; White Blood Count 9.8 K/mcL (4.3-11.1)
[2019-03-18 05:10] LABS: BUN/Creatinine Ratio 11 (6-26); Blood Urea Nitrogen 7 mg/dL (6-20); Calcium 8.4 mg/dL (8.6-10.3); Carbon Dioxide 22 mEq/L (23-29); Chloride 107 mEq/L (98-107); Glucose 116 mg/dL (70-105); Osmolality,Calculated 291 (280-300); Potassium 3.1 mEq/L (3.5-5.1); Sodium 141 mEq/L (136-145); eGFR For African Americans > 60 (> 60); eGFR For Non-African Americans > 60 (> 60)
[2019-03-18] MEDS: 0.9 % Sodium Chloride 1,000 ML IVC SCH ×2 (09:03→19:18)
[2019-03-18] MEDS: Gabapentin 300 MG CAPSULE PO SCH ×3 (09:05→19:18)
--- NOTE | 2019-03-18 11:47 | Internal Med Progress Note ---
Hospitalist Progress Note - Encounter Date of Encounter: 03/18/19 Time of Encounter: 11:45 - Subjective Interval History: She was seen and examined at bedside. Vision denies any acute concerns and events at this time. Patient denies any difficulty in breathing. Patient denies any suicidal and homicidal ideation. She is currently on Celexa 40 mg daily for depression. - Exam Vitals: Temp Pulse Resp BP Pulse Ox 98.5 F 69 18 144/79 94 03/18/19 07:00 03/18/19 07:00 03/18/19 07:00 03/18/19 07:00 03/18/19 07:00 Exam: Patient appears in mild respiratory distress. Eyes: Sclera is white. There is no discharge from eyes. ENMT: Oral/pharyngeal mucosa is normal in appearance. There is no discharge from nose or ears. Respiratory: Bilateral coarse breath sounds. CV: S1 and S2 regular rate and rhythm. No murmur. GI: Soft and nontender. Bowel sounds present in 4 quadrants.. : There is no tenderness in patient's flanks bilaterally. Neuro exam: He has good strength in upper and lower extremities. He has normal eye movements. Psychiatric: He has normal affect. His thought process is appropriate to the situation. Suicidal ideation and homicidal ideation at present. - Assessment and Plan (1) Acute respiratory failure with hypoxemia Current Visit: Yes Status: Acute Assessment and Plan: Patient was transferred to [address] [place] [address] yesterday due to development of acute hypoxemic respiratory failure. Continue Zosyn. Patient is currently off BiPAP. We will get CT chest today. (2) Suicide attempt by multiple drug overdose Current Visit: Yes Status: Acute Assessment and Plan: Patient denies any suicidal ideation and homicidal ideation. Continue Celexa. Psychiatry recommended [facility] for her. (3) UTI (urinary tract infection) Current Visit: Yes Status: Acute Assessment and Plan: Patient is on Zosyn at this time urine culture is pending. (4) Multiple sclerosis Current Visit: Yes Status: Acute Assessment and Plan: We will start home medication after confirming. (5) Major depress dis, severe Current Visit: Yes Status: Acute Assessment and Plan: Continue Celexa. DVT Prophylaxis: Stocking. - Time Spent with Patient Total time spent is greater than 50% in coordination of care (as documented) at patient's floor/unit and/or counseling patient: Internal Medicine: Result - Labs CBC & Chem 7: 03/18/19 04:32 03/18/19 04:32 Labs: Short CBC 03/18/19 Range/Units 04:32 WBC 9.8 (4.3-11.1) K/mcL Hgb 13.4 (11.5-15.4) g/dL Hct 40.0 (35.3-44.9) % Plt Count 272 (140-400) K/mcL Neutrophils # 6.9 (1.6-8.9) K/mcL BMP 03/18/19 04:32 Sodium 141 Potassium 3.1 L Chloride 107 Carbon Dioxide 22 L BUN 7 Creatinine 0.63 Glucose 116 H Calcium 8.4 L - ABG Interpretation ABG results: ABG ABG pH 7.42 pH Units (7.32-7.45) 03/16/19 12:58 ABG pCO2 36 mmHg (35-45) 03/16/19 12:58 ABG pO2 55 mmHg (85-104) L 03/16/19 12:58 ABG O2 Saturation 89 % (95-98) L 03/16/19 12:58 - Impressions Impressions Chest CT 03/17/19 16:37 IMPRESSION: 1. Small, partially loculated right pleural effusion. Complete right middle lobe and dependent right lower lobe opacification, likely atelectasis although infiltrate not excluded. Retained secretions in the trachea and right lower lobe bronchi. 2. Mild emphysematous changes. 3. Small quantity of upper abdominal ascites. Partial visualization of the upper pole of the right kidney with mild infiltration of the perinephric fat and fullness of the collecting system. D/ / 03/17/2019 16:21:43 Arcadio Amezquita MD / [email or web address] Interpreting Provider: Arcadio Amezquita MD - VTE Documentation of Mechanical Device: Graduated compression elastic hosiery Consult Discharge Plan - Plan Referrals: NONE,PCP [Primary Care Provider] - (2) Suicide attempt by multiple drug overdose Qualifiers: Encounter type: initial encounter Qualified Code(s): T50.902A - Poisoning by unspecified drugs, medicaments and biological substances, intentional self-harm, initial encounter (3) UTI (urinary tract infection) Qualifiers: Urinary tract infection type: site unspecified Hematuria presence: with hematuria Qualified Code(s): N39.0 - Urinary tract infection, site not specified; R31.9 - Hematuria, unspecified
[2019-03-18] MEDS: Acetaminophen 325 MG TABLET PO PRN (11:58)
--- NOTE | 2019-03-18 13:47 | Electrocardiograph Report ---
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
[2019-03-19 01:49] LABS: Basophils % 0.4 %; Eosinophils # 0.7 K/mcL (0.0-0.6); Hematocrit 40.7 % (35.3-44.9); Hemoglobin 13.6 g/dL (11.5-15.4); Immature Granulocytes % 0.5 % (0-4); Lymphocytes # 1.6 K/mcL (0.6-4.6); Lymphocytes % 15.4 %; Mean Corpuscular HGB Conc 33.4 g/dL (31.6-35.5); Mean Corpuscular Hemoglobin 29.7 pg (28.0-33.3); Mean Corpuscular Volume 88.9 fL (83.0-100.0); Mean Platelet Volume 9.5 fL (9.4-12.4); Monocytes # 0.8 K/mcL (0.0-1.3); Monocytes % 7.8 %; Neutrophils # 7.1 K/mcL (1.6-8.9); Platelet Count 281 K/mcL (140-400); Red Blood Count 4.58 M/mcL (3.82-4.97); Red Cell Distribution Width 12.4 % (11.5-14.5); Segmented Neutrophils % 68.9 %; White Blood Count 10.4 K/mcL (4.3-11.1)
[2019-03-19 02:04] LABS: BUN/Creatinine Ratio 13 (6-26); Blood Urea Nitrogen 8 mg/dL (6-20); Calcium 8.3 mg/dL (8.6-10.3); Carbon Dioxide 21 mEq/L (23-29); Chloride 112 mEq/L (98-107); Glucose 114 mg/dL (70-105); Osmolality,Calculated 295 (280-300); Potassium 3.4 mEq/L (3.5-5.1); Sodium 143 mEq/L (136-145); eGFR For African Americans > 60 (> 60); eGFR For Non-African Americans > 60 (> 60)
[2019-03-19] MEDS: Piperacillin/Tazobactam 3.375 GM in 0.9 % Sodium Chloride Mini Bag 100 ML IVPB SCH (02:57)
[2019-03-19] MEDS: 0.9 % Sodium Chloride 1,000 ML IVC SCH ×2 (06:07→11:00)
[2019-03-19] MEDS: Gabapentin 300 MG CAPSULE PO SCH ×2 (08:40→15:45)
[2019-03-19 16:36] VITALS: BP 160/84
--- NOTE | 2019-03-19 17:03 | Discharge Summary ---
- NOTES TO OUTPATIENT PROVIDER Notes to Outpatient Provider: Patient is a 58-year-old female with past medical history of multiple sclerosis, mood disorder presented to the emergency room after taking 10 tablets of citalopram and handful of baclofen 10 mg tablet in intent to harm herself. Level was done at the [facility] where she was initially presented was unremarkable. EKG was normal sinus rhythm with normal OK and QTC intervals. patient was admitted for intentional overdose. During hospital stay she developed aspiration pneumonia. Patient was placed on antibiotic and she improved. Patient will be transferred to the [facility] floor per psychiatry recommendation with oral antibiotics. Further management per psychiatry [facility] floor. Follow-up on the blood culture and urine culture. Orders not resulted at time of discharge: Pending orders 03/15/19 18:57 Culture,Urine [RM] Stat 03/15/19 19:24 Culture,Blood [BC] Stat Estimated PT Needs at Discharge: None Date of Encounter: 03/19/19 Time of Encounter: 16:59 - Discharge Diagnosis (1) Acute respiratory failure with hypoxemia Priority: Primary Status: Acute (2) UTI (urinary tract infection) Priority: Secondary Status: Acute Qualifiers: Urinary tract infection type: site unspecified Hematuria presence: without hematuria Qualified Code(s): N39.0 - Urinary tract infection, site not specified (3) Suicide attempt by multiple drug overdose Priority: Secondary Status: Acute Qualifiers: Encounter type: subsequent encounter Qualified Code(s): T50.902D - Poisoning by unspecified drugs, medicaments and biological substances, intentional self-harm, subsequent encounter (4) Multiple sclerosis Priority: Secondary Status: Acute (5) Major depress dis, severe Priority: Secondary Status: Acute Hospital course: Ms. Moreno is a 58 year old female with past medical history of multiple sclerosis, mood disorder presented to the emergency room after taking 10 tablets of citalopram and handful of baclofen 10 mg tablet in intent to harm herself. Level was done at the [facility] where she was initially presented was unrem arkable. EKG was normal sinus rhythm with normal OK and QTC intervals. patient was admitted for intentional overdose. During hospital stay she developed aspiration pneumonia. Patient was placed on antibiotic and she improved. Patient will be transferred to the [facility] floor per psychiatry recommendation with oral antibiotics. Further management per psychiatry [facility] floor. Follow-up on the blood culture and urine culture. Discharge discussed with: patient, social work, case management - Time Spent with Patient Total time spent providing and/or coordinating discharge services: 40 Time spent: Greater than 30 minutes - Discharge Medications Prescriptions: New Amoxicillin/Clavulanate [Augmentin] 875 mg PO BIDWM 5 Days #10 tablet Continued Interferon Beta-1A [Avonex] 30 mcg IM QWEEK Citalopram Hydrobromide [Citalopram HBr] 40 mg PO DAILY Cholecalciferol (Vitamin D3) [Vitamin D3] 2,000 unit PO DAILY Gabapentin [Neurontin] 1,200 mg PO TID Amantadine HCl [Amantadine] 100 mg PO QAM Discontinued Baclofen [Lioresal] 10 mg PO TID PRN PRN Reason: Muscle Spasm Home Medications: Amantadine HCl [Amantadine] 100 mg PO QAM 03/15/19 [History] Cholecalciferol (Vitamin D3) [Vitamin D3] 2,000 unit PO DAILY 03/15/19 [History] Citalopram Hydrobromide [Citalopram HBr] 40 mg PO DAILY 03/15/19 [History] Gabapentin [Neurontin] 1,200 mg PO TID 03/15/19 [History] Interferon Beta-1A [Avonex] 30 mcg IM QWEEK 03/16/19 [History] Amoxicillin/Clavulanate [Augmentin] 875 mg PO BIDWM 5 Days #10 tablet 03/19/19 [Rx] Allergies/Adverse Reactions: Allergy/AdvReac Type Severity Reaction Status Date / Time acetaminophen [From Percocet] Allergy Hives Verified 03/16/19 17:33 oxycodone [From Percocet] Allergy Hives Verified 03/16/19 17:33 Date of admission: 03/16/19 17:21 Primary care physician: PCP NONE Consults: 03/15/19 20:10 Consult to Psychiatry [CONS] Routine Consulting Provider: Psychiatry Shahnaz Reason consult: Sitter/1:1 Other reason and/or additional details: Suicide attempt 03/17/19 20:00 Consult to School Office Manager [CONS] Routine Reason for SW Consult: [facility]. Discharging clinician: Tejinder Yu - Constitutional Vitals: Temp Pulse Resp BP Pulse Ox 98.1 F 69 18 160/84 95 03/19/19 16:35 03/19/19 16:35 03/19/19 16:35 03/19/19 16:35 03/19/19 16:35 General appearance: Present: cooperative, A&O X 3 Exam: General: A & O 3, In no acute distress HENNT: PERRLA. Head atraumatic and makes supple CVS S1 and S2 regular, no murmur RS: Clear to air entry bilaterally, no wheeze, no crackles Abdomen: Soft and nontender. Bowel sounds normal 4 Extremities: No cyanosis, clubbing, and edema Neurology: Cranial 2 through 12 normal. Motor strength 5/5 bilaterally. Sensation intact - Patient Status Disposition: Transfer Psychiatric Hosp Condition: Good Overall status at discharge: patient is progressing back to baseline - Discharge Instructions Follow Up With: NONE,PCP [Primary Care Provider] - - Diet and Activity Activity: increase activity as tolerated Diet: advance to your usual diet - VTE Documentation of Mechanical Device: Graduated compression elastic hosiery
--- NOTE | 2019-03-19 17:19 | Physician Discharge Referral ---
ExtendedCare Referral Info Transfer To: [facility] Provider in Charge after Transfer: PCP - Diagnosis (1) Acute respiratory failure with hypoxemia Status: Acute (2) UTI (urinary tract infection) Priority: Secondary Status: Acute (3) Suicide attempt by multiple drug overdose Priority: Secondary Status: Acute (4) Multiple sclerosis Priority: Secondary Status: Acute (5) Major depress dis, severe Priority: Secondary Status: Acute Prognosis: Good - Transfer Medications Prescriptions: Amoxicillin/Clavulanate [Augmentin] 875 mg PO BIDWM 5 Days #10 tablet Home Medications: Amantadine HCl [Amantadine] 100 mg PO QAM 03/15/19 [History] Cholecalciferol (Vitamin D3) [Vitamin D3] 2,000 unit PO DAILY 03/15/19 [History] Citalopram Hydrobromide [Citalopram HBr] 40 mg PO DAILY 03/15/19 [History] Gabapentin [Neurontin] 1,200 mg PO TID 03/15/19 [History] Interferon Beta-1A [Avonex] 30 mcg IM QWEEK 03/16/19 [History] Amoxicillin/Clavulanate [Augmentin] 875 mg PO BIDWM 5 Days #10 tablet 03/19/19 [Rx] Allergies/Adverse Reactions: Allergy/AdvReac Type Severity Reaction Status Date / Time acetaminophen [From Percocet] Allergy Hives Verified 03/16/19 17:33 oxycodone [From Percocet] Allergy Hives Verified 03/16/19 17:33 - Respiratory Orders Smoking Cessation: Smoking cessation has been advised. For more information, call the [place] Tobacco Quit Line at 7-863-IQAY-NOW. - Ancillary Orders May use pressure relief devices daily prn - Advance Directives Code Status: Full Code - Diet Orders Regular CERTIFICATION: I certify that the transfer of the above named patient to an Extended Care Facility is necessary for the continuing treatment of the diagnosis listed. The above information is true and accurate reflection of patient's current condition. Confidential - Redisclosure prohibited without a patient's written consent.
--- NOTE | 2019-03-20 13:14 | Electrocardiograph Report ---
[place] [id number] Test Date: 2019-03-15 Pat Name: [facility] Department: [id number] Room: 2A63 Gender: Bacon De Rinder: : 1960 Requested By: Stefania Easley Order Number: [id number] Reading MD: Gumaro Olvera Measurements Intervals [place] Rate: 77 P: 50 MI: 134 QRS: 95 QRSD: 87 T: 59 QT: 399 QTc: 452 Interpretive Statements Sinus rhythm Borderline right axis deviation Electronically Signed On 03-20-2019 13:13:25 EDT by Gumaro Olvera
--- NOTE | 2019-03-20 13:23 | Electrocardiograph Report ---
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
== END 2019-03-19 18:51 | DRG 917 ==
LOC: 3BNU 18:11 → EMEROOARM 18:11 → 3BNU 20:45 → SUATTDRO 03-16 17:21 → 2NNU 03-16 22:09 → 2ANU 03-19 04:38
PROVIDERS: ADMIT Internal Medicine; ATTEND Family Medicine